=== PATIENT | male | born 1975 | race Caucasian/White ===

== ENCOUNTER 2019-09-27 14:00 | Outpatient (RCR) | payer OTHER, SELFPAY ==
[2019-08-31 13:16] VITALS: BMI 35.7
[2019-08-31 14:05] VITALS: BMI 35.7
== END 2019-11-29 23:59 | disposition home or self-care (01) ==
LOC: ANHDMC 14:00
PROVIDERS: PCP Family Medicine; Visit Provider Family Medicine
DX: E11.9 Type 2 diabetes mellitus without complications (principal); Z71.3 Dietary counseling and surveillance
CPT/HCPCS: 97802

== ENCOUNTER → 2020-10-12 08:07 | Outpatient (CLI) | payer OTHER, SELFPAY ==
--- NOTE | ~2020-10-12 | XR_ITS ---
EXAMINATION: XR chest 2V EXAM DATE: 10/12/2020 08:15 INDICATION: Cough. TECHNIQUE: Frontal and lateral projections of the chest obtained and reviewed. There is no prior jhoan dy for comparison. FINDINGS: The lungs are clear. There are no pleural effusions. The cardiomediastinal silhouette is within normal limits. There is no pneumothorax suspected. The bones and soft tissues are unremarkab le. IMPRESSION: Unremarkable chest x-ray exam. Reviewed, dictated and finalized at location A. ENT ASSISTANT
== END ==
PROVIDERS: Visit Provider Family Medicine
DX: R05 Cough (principal)
CPT/HCPCS: 71046

== ENCOUNTER 2021-02-05 17:08 | Emergency (ER) | payer OTHER, SELFPAY ==
--- NOTE | ~2021-02-05 | XR_ITS ---
EXAMINATION: XR chest 2V DATE: 02/05/2021 17:55 INDICATION: Hypertension TECHNIQUE: AP and lateral views of the chest are obtained. COMPARISON: 10/12/2020 FINDINGS: The lungs are free of acute opacities. There is no pleural effusion or pneumothorax. The ca rdiomediastinal silhouette is normal. There is mild thoracic spondylosis. IMPRESSION: 1. No acute cardiopulmonary abnormality. Reviewed, dictated and finalized at location A.
--- NOTE | 2021-02-05 17:23 | ECG_ITS ---
Measurements Intervals [place] Rate: 97 P: 48 VT: 164 QRS: -21 QRSD: 161 T: 4 QT: 376 QTc: 478 Interpretive Statements SINUS RHYTHM WITH SINUS ARRHYTHMIA RIGHT BUNDLE BRANCH BLOCK ABNORMAL ECG Electronically Signed On 02-05-2021 20:05:49 CDT by Guillermo Swartz D.O.
[2021-02-05 17:26] VITALS: BP 174/108; PULSE 103; RESP 14; TEMP 36.6; O2SAT 99
--- NOTE | 2021-02-05 17:40 | PC.NURSE ---
pt became diaphoretic s/p blood draw bp 95/50. ice bag applied to chest. within a few min bp increased to 135/93 and pt felt much better.
[2021-02-05 17:53] LABS: Basophils Absolute Auto 0.1 K/mm3 (0.0-0.1); Basophils Percent Auto 0.8 % (0.2-1.2); Eosinophils Absolute Auto 0.1 K/mm3 (0-0.3); Hematocrit 46.9 % (42.0-52.0); Hemoglobin 16.5 g/dL (14.0-18.0); Immature Granulocyte Absolute 0.03 K/mm3 (0.00-0.031); Immature Granulocyte Percent A 0.3 % (0-0.5); Lymphocytes Absolute Auto 2.09 K/mm3 (0.9-3.2); Lymphocytes Percent Auto 20.9 % (18.3-44.2); Mean Corpuscular HGB Conc 35.2 g/dl (32-36); Mean Corpuscular Volume 85.3 fl (80-100); Mean Platelet Volume 9.8 fl (7.4-10.4); Monocytes Absolute Auto 0.9 K/mm3 (0.1-0.6); Monocytes Percent Auto 8.8 % (2.6-8.5); Neutrophils Absolute Auto 6.8 K/mm3 (1.3-6.7); Neutrophils Percent Auto 68.2 % (45.5-73.1); Platelet Count Result 332 k/mm3 (150-375)
[2021-02-05 18:07] LABS: INR 0.9; Prothrombin Time 12.9 Seconds (11.1-14.7)
[2021-02-05 18:08] LABS: Partial Thromboplastin Time 27.2 SECONDS (22.3-36.8)
--- NOTE | 2021-02-05 18:08 | ED.RECABL ---
HPI - Recheck/Abnormal Lab/Rx General Chief Complaint: Recheck/Abnormal Lab/Rx Stated Complaint: htn Time Seen by Provider: 02/05/21 17:49 History of Present Illness HPI narrative: 45 yo male presents to the ED for htn and headache. He reports that this morning his told him that she may want a divorce. Since that time he has had a moderate frontal headache. He was concerned, so he checked his blood pressure and it was significantly higher than his usual. His headache is mostly resolved at this time. Related Data Allergies Allergy/AdvReac Type Severity Reaction Status Date / Time No Known Allergies Allergy Verified 12/31/20 16:32 Review of Systems Review of Systems: All systems reviewed & are unremarkable except as noted in HPI and below Constitutional: Constitutional: Denies chills and Denies fever(s) Eyes: Eyes: Denies no additional eye complaints Cardiovascular: Cardiovascular: Denies chest pain Respiratory: Respiratory: Denies dyspnea Gastrointestinal: Gastrointestinal: Denies abdominal pain and Denies nausea Genitourinary: Genitourinary: Reports no additional male genitourinary complaints Musculoskeletal: Musculoskeletal: Denies back pain Neurologic: Reports as per HPI [facility] Past Medical History Medical History BMI 38.0-38.9,adult BMI 39.0-39.9,adult Cough Family History Family History Mother Family history of multiple sclerosis Hypertension Grandparent Hypertension Cerebrovascular accident Family history of coronary artery disease Father COPD (chronic obstructive pulmonary disease) Arthritis Mother Hypertension Family history of multiple sclerosis Social History Social History Second hand tobacco smoke exposure: Yes Alcohol intake: never Substance use: never Substance use type: does not use 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 Gender identity (if verbalized by the patient): Male Spiritual care concerns: No Exam Const: General: healthy appearing, no acute distress and alert Orientation/consciousness: patient oriented x3 HENMT: Head: normal to inspection Neck: Neck: normal visual inspection Resp: Effort & Inspection: normal respiratory effort Auscultation: clear to auscultation bilaterally, no rales, no rhonchi and no wheezes Cardio: Jugular venous distension: no JVD Rate: regular rate Rhythm: regular rhythm Heart sounds: no murmurs GI: Inspection: non-distended GI Palp: Yes Soft to palpation and No Tenderness to palpation present (GI) Skin: General skin exam: normal color Neuro: General: patient oriented x3 and moves all extremities Speech: normal speech Extrem: General: no edema Psych: Appearance: well kempt Affect: normal affect Course Vital Signs Vital signs: Vital Signs Temperature 36.6 C 02/05/21 17:26 Pulse Rate 103 H 02/05/21 17:26 Respiratory Rate 14 02/05/21 17:26 Blood Pressure 174/108 H 02/05/21 17:26 Pulse Oximetry 99 02/05/21 17:26 Temperature 36.6 C 02/05/21 17:26 Pulse Rate 85 02/05/21 18:54 Respiratory Rate 18 02/05/21 18:54 Blood Pressure 143/88 H 02/05/21 18:54 Pulse Oximetry 95 02/05/21 18:54 MDM - Recheck/Abnormal Lab/Rx MDM Narrative Medical decision making narrative: He seems to be having a normal response to a stressful situation. Medical Records Attestation: I reviewed the patient's medical records. Lab Data Attestation: I reviewed the patient's lab results. Result diagrams: 02/05/21 17:39 02/05/21 17:39 Labs: Lab Results 02/05/21 02/05/21 02/05/21 Range/Units 17:39 17:39 17:39 WBC 10.0 (4.5-10.0) K/mm3 RBC 5.50 (4.6-6.20) M/mm3 Hgb 16.5 (14.0-18.0) g/dL Hct 46.9 (42.0-52.0) % MCV 85.3 (80-100) fl MCH 30.0 (26-34
[2021-02-05 18:10] LABS: Anion Gap 10 mmol/L (8-16); Blood Urea Nitrogen 14 mg/dL (9-20); Calcium 9.3 mg/dL (8.4-10.2); Carbon Dioxide 26 mmol/L (22-30); Chloride 100 mmol/L (98-107); Estimated CRCL calculation 133 ml/min; Estimated Glomerular Filt Rate > 60; Glucose 122 mg/dL (75-110); Potassium 3.7 mmol/L (3.4-5.0); Sodium 136 mmol/L (137-145)
[2021-02-05 18:19] LABS: Troponin I < 0.012 ng/mL (0.000-0.034)
[2021-02-05 18:54] VITALS: BP 143/88; PULSE 85; RESP 18; O2SAT 95
== END 2021-02-05 18:55 | disposition home or self-care (01) ==
PROVIDERS: Emergency Provider Emergency Medicine; PCP Family Medicine
DX: I10 Essential (primary) hypertension (principal); F43.9 Reaction to severe stress, unspecified; I45.10 Unspecified right bundle-branch block
CPT/HCPCS: 36415; 71046; 80048; 84484; 85025; 85610; 85730; 93005; 99284

== ENCOUNTER 2024-02-02 09:28 | Outpatient (CLI) | payer OTHER, SELFPAY ==
--- NOTE | ~2024-02-02 | MR_ITS ---
EXAMINATION: MR pituitary wo con DATE: 02/02/2024 10:43 INDICATION: Other specified abnormal findings of blood chemistry. Low testosterone. Low TSH. TECHNIQUE: Magnetic resonance imaging (MRI) of the brain and brainstem was performed without intraven ous contrast. COMPARISON: None. FINDINGS: The pituitary is normal in size with height of 3 mm. There is no intracranial hemorrhage, a cute infarction, or abnormal intracranial mass lesion. The ventricles are normal in size. There is a trace left mastoid effusion. The orbits are normal. The paranasal sinuses are clear. IMPRESSION: 1. Normal brain. Reviewed, dictated and finalized at location A. IMPRESSION: 1. Normal brain.
== END 2024-02-02 09:29 ==
LOC: GOSHIMG 09:28
PROVIDERS: PCP Family Medicine; Visit Provider Family Medicine
DX: R79.89 Other specified abnormal findings of blood chemistry (principal); R53.83 Other fatigue
CPT/HCPCS: 70551